=== PATIENT | male | born 1990 | race Caucasian/White ===

== ENCOUNTER → 2022-12-22 13:03 | Outpatient (BNVA) | payer OTHER, SELFPAY | PROVIDERS: Visit Provider Internal Medicine Pulmonary Disease | DX: J45.909 Unspecified asthma, uncomplicated (principal); R06.02 Shortness of breath; G47.9 Sleep disorder, unspecified | CPT/HCPCS: 36415; 82785; 85025; 86003; 99204 ==

== ENCOUNTER 2023-03-03 | Outpatient (CLI) | payer OTHER, SELFPAY | END 2023-03-03 23:00 | disposition home or self-care (01) | LOC: SPT 04-12 10:05 | PROVIDERS: Visit Provider Emergency Medicine | DX: Z46.89 Encounter for fitting and adjustment of other specified devices (principal); S22.010D Wedge compression fracture of first thoracic vertebra, subsequent encounter for fracture with routine healing; X58.XXXD Exposure to other specified factors, subsequent encounter | CPT/HCPCS: L0456 ==